=== PATIENT | female | born 1945 | race Caucasian/White ===

== ENCOUNTER 2020-11-25 22:38 | Emergency (ER) | payer MEDICARE, SELFPAY ==
--- NOTE | ~2020-11-25 | XR_ITS ---
[id number] DATE: 11/25/2020 23:13 INDICATION: Fall. Left rib pain. TECHNIQUE: Portable AP chest. 3 views of the left ribs. COMPARISON: None FINDINGS: There is diffuse osteopenia. No left rib fracture is detected. Heart size is normal. Is aortic arch calcification. No pulmonary infiltrate or consolidation, pleural effusion or pulmonary vascular congestion or pneumo thorax. IMPRESSION: No active cardiac pulmonary disease Aortic calcification Diffuse osteopenia No apparent left rib fracture Reviewed, dictated and finalized at [facility]. Reviewed, dictated and finalized at location A.
--- NOTE | ~2020-11-25 | XR_ITS ---
XR wrist LT min 3V DATE: 11/25/2020 23:12 INDICATION: Fall. Left wrist injury TECHNIQUE: 3 views COMPARISON: None FINDINGS: There is a transverse distal radial metaphyseal fracture with approximately one cortical wi dth dorsal displacement. There is mild dorsal inclination of the distal radial articular surface due to mild apex anterior angulation. There is bladder displaced fracture of the ulnar styloid process. Prominent diffuse osteopenia. Chondrocalcinosis at the triangular cartilage. Prominent osteoarthritic change at the first carpometacarpal joint. IMPRESSION: Transverse minimally dorsally displaced distal radial metaphyseal fracture with dorsal in clination of the distal radial articular surface Fracture of ulnar styloid process Diffuse osteopenia Prominent osteoarthritic change at the first carpometacarpal joint Chondrocalcinosis of triangular cartilage Reviewed, dictated and finalized at location A. IMPRESSION: Transverse minimally dorsally displaced distal radial metaphyseal f racture with dorsal inclination of the distal radial articular surface Fracture of ulnar styloid process Diffuse osteopenia Prominent osteoarthritic change at the first carpometacarpal joint Chondrocalcinosis of triangular cartilage
[2020-11-25 22:49] VITALS: BP 148/74; PULSE 80; RESP 16; TEMP 37; O2SAT 99
--- NOTE | 2020-11-25 23:11 | PC.NURSE ---
Report received and care of pt assumed at this time.
[2020-11-25 23:29] VITALS: BP 140/53; PULSE 73; RESP 16; O2SAT 100
[2020-11-26] MEDS: HYDROcodone/acetaminophen (*CRX) 5-325 MG TABLET 1 TAB PO (00:53)
--- NOTE | 2020-11-26 01:13 | ED.GENADULT ---
HPI - General Adult General Chief complaint: Fall Stated complaint: Fall; L Wrist Pain Time Seen by Provider: 11/25/20 23:51 History of Present Illness HPI narrative: Patient 75-year-old female presents the emergency department with chief complaint of left wrist pain and left sided chest wall pain. Patient reports that she was getting a [employer]eder[employer] Pepper out of the refrigerator and was carrying a piece of pizza. The patient states that she tripped fell forward and landed on an outstretched wrist. The patient states that she has pain with range of motion and noticed there is deformity of the distal wrist. The patient reports that she has no numbness or tingling reports she has full range of motion in her hand reports she has tenderness to palpation on her left chest wall and hurts whenever she takes a deep breath or moves around. Related Data Home Medications Medication Instructions Recorded Confirmed lisinopril 11/25/20 Allergies Allergy/AdvReac Type Severity Reaction Status Date / Time No Known Allergies Allergy Verified 11/25/20 22:51 Review of Systems Review of Systems: A 10 system review of systems was completed on the patient and is negative except for what is stated in the HPI. Nursing and ancillary documentation was reviewed. PMFSH Comments Patient is from [facility] family Exam Narrative: GENERAL: Well-appearing, well-nourished, and in no acute distress. HEAD: Normocephalic, atraumatic. EYES: PERRLA and EOMI. ENT: Nares clear, no rhinorrhea or epistaxis. Mucous membranes moist. NECK: Supple. CHEST: Clear to auscultation. No respiratory distress. Tenderness to palpation in the left chest wall. HEART: Regular rate and rhythm. No murmur heard. Normal peripheral pulses. ABDOMEN: Soft, nontender, nondistended, normal active bowel sounds. EXTREMITIES: Normal range of motion. No edema. Deformity present of the left distal radius. SKIN: Warm, dry, no rash. NEURO: No focal deficits. Alert and oriented x3. PSYCH: Normal mood and affect. Course Vital Signs Vital signs: Vital Signs Temperature 37.0 C 11/25/20 22:49 Pulse Rate 80 11/25/20 22:49 Respiratory Rate 16 11/25/20 22:49 Blood Pressure 148/74 H 11/25/20 22:49 Pulse Oximetry 99 11/25/20 22:49 Temperature 37.0 C 11/25/20 22:49 Pulse Rate 73 11/25/20 23:29 Respiratory Rate 16 11/25/20 23:29 Blood Pressure 140/53 L 11/25/20 23:29 Pulse Oximetry 100 11/25/20 23:29 Medical Decision Making Vital Signs Vital Signs: Vital Signs Temperature 37.0 C 11/25/20 22:49 Pulse Rate 80 11/25/20 22:49 Respiratory Rate 16 11/25/20 22:49 Blood Pressure 148/74 H 11/25/20 22:49 Pulse Oximetry 99 11/25/20 22:49 Temperature 37.0 C 11/25/20 22:49 Pulse Rate 73 11/25/20 23:29 Respiratory Rate 16 11/25/20 23:29 Blood Pressure 140/53 L 11/25/20 23:29 Pulse Oximetry 100 11/25/20 23:29 Discharge Plan Discharge Clinical Impression: Closed fracture of distal end of left radius Qualifiers: Encounter type: initial encounter Fracture morphology: unspecified fracture morphology Qualified Code(s): S52.502A - Unspecified fracture of the lower end of left radius, initial encounter for closed fracture Contusion of rib on left side Qualifiers: Encounter type: initial encounter Qualified Code(s): S20.212A - Contusion of left front wall of thorax, initial encounter Patient Disposition: Home, Self-Care Condition: Stable Instructions: Antibiotic Form, Wrist Fracture in Adults (ED), Rib Contusion (ED) Prescriptions: New hydrocodone-acetaminophen 5-325 mg tablet 1 tablet PO Q6H PRN (Reason: pain) Qty: 12 RF: 0 No Action lisinopril 5 mg Tablet RF: 0 Follow-up/Referrals: PHYSICIAN NOT ON STAFF,NONSTAFF [Primary Care Provider] - Carlos Fitzgerald MD [Physician] - 1 Week Time of Disposition: 01:17
--- NOTE | 2020-12-13 10:57 | PC.NURSE ---
LATE ENTRY This note is being entered to document information to the patient's record. The following information was omitted on [11/25/2020], by [Devyn Carvalho]. Short arm splint applied to left wrist by [employer].
== END 2020-11-26 02:28 | disposition home or self-care (01) ==
PROVIDERS: Emergency Provider Emergency Medicine
DX: S59.292A Other physeal fracture of lower end of radius, left arm, initial encounter for closed fracture (principal); S52.612A Displaced fracture of left ulna styloid process, initial encounter for closed fracture; S20.212A Contusion of left front wall of thorax, initial encounter; M11.232 Other chondrocalcinosis, left wrist; W01.0XXA Fall on same level from slipping, tripping and stumbling without subsequent striking against object, initial encounter
CPT/HCPCS: 29125; 71101; 73110; 99284; A9270

== ENCOUNTER 2022-07-03 15:22 | Emergency (ER) | payer MEDICARE, SELFPAY ==
--- NOTE | ~2022-07-03 | CT_ITS ---
EXAMINATION: CT pelvis wo con DATE: 07/03/2022 16:59 INDICATION: Severe right hip pain and difficulty with ambulation TECHNIQUE: High resolution computed tomography (CT) of the pelvis was performed without intravenous c ontrast. Additional sagittal and coronal reconstructions were performed. Automated exposure control a nd iterative reconstruction technique were employed. The dose-length product was 775.08 mGy-cm. COMPARISON: None FINDINGS: Partially visualized lumbar levoscoliosis with severe spondylosis. 3-4 mm anterolisthesis of L4 on L5 . L5 is partially sacralized on the right. Lucent lesion with thickened internal trabecula at the rig ht side of L5 consistent with a hemangioma. There is chronic appearing superior endplate compression fracture at the left side of L3. No acute fracture. Mild osteoarthritis at the left hip. Mild to mode rate osteoarthritis at the right hip and bilateral sacroiliac joints. No osteonecrosis. No hip joint effusion or other abnormal fluid collections. Postoperative change of prior ventral hernia mesh repai r. There is also been prior bowel surgery with suture line along a segment of bowel in the left abdom en. Moderate diverticulosis along the sigmoid colon without adjacent from trace joint to suggest dive rticulitis. Appendix is normal. Bladder is normal. The uterus is not identified and has likely been s urgically resected. Multiple phleboliths in the pelvis. No free fluid in the pelvis. No pathologicall y enlarged pelvic or inguinal lymphadenopathy. IMPRESSION: 1. Mild lumbar levoscoliosis with severe spondylosis. 2. Mild to moderate osteoarthritis at the right hip and bilateral sacral iliac joints and mild osteoa rthritis at the left hip. 2. Sigmoid diverticulosis. Reviewed, dictated and finalized at location A. IMPRESSION: 1. Mild lumbar levoscoliosis with severe spondylosis. 2. Mild to moderate osteoarthritis at the right hip and bilateral sacral iliac joints and mild osteoarthritis at the left hip. 2. Sigmoid diverticulosis.
[2022-07-03 15:24] VITALS: BP 131/79; PULSE 69; RESP 16; TEMP 36.8; O2SAT 98
--- NOTE | 2022-07-03 16:45 | ED.LOWEXIN ---
HPI - Extremity Injury (Lower) General Chief Complaint: Extremity Injury, Lower Stated Complaint: RLE PAIN Time Seen by Provider: 07/03/22 15:34 History of Present Illness HPI Narrative: Patient is a 76-year-old female presenting with right leg pain. Patient states that she had a right knee replacement several months ago. Since that time she has been trying to walk at least a mile every day. States that she went to a cancer walking event on Friday and shortly after developed severe right hip pain. States that it is a shooting pain that goes down her right thigh making it difficult for her to walk. Denies significant trauma or falls. States that she has some tingling on the right side of her right knee. Denies further numbness. States that it hurts so bad she is having difficulty lifting her leg in bed. Denies any back pain. Denies further complaints. Related Data Home Medications Medication Instructions Recorded Confirmed lisinopril 5 mg tablet 11/25/20 Allergies Allergy/AdvReac Type Severity Reaction Status Date / Time No Known Allergies Allergy Verified 11/25/20 22:51 Review of Systems Review of Systems: All systems reviewed & are unremarkable except as noted in HPI and below Exam Narrative: GENERAL: Well-appearing, well-nourished, and in no acute distress. HEAD: Normocephalic, atraumatic. EYES: PERRLA and EOMI. ENT: Nares clear, no rhinorrhea or epistaxis. Mucous membranes moist. NECK: Supple. CHEST: Clear to auscultation. No respiratory distress. HEART: Regular rate and rhythm ABDOMEN: Soft, nontender, nondistended EXTREMITIES: tenderness of R medial upper thigh extending distally to right knee, no skin changes, distal pulses 2+, brisk cap refill, compartments are soft; denies tenderness in other extremities SKIN: Warm, dry, no rash. NEURO: No focal deficits. Alert and oriented x3. PSYCH: Normal mood and affect. Course Vital Signs Vital signs: Vital Signs Temperature 98.2 F 07/03/22 15:24 Pulse Rate 69 07/03/22 15:24 Respiratory Rate 16 07/03/22 15:24 Blood Pressure 131/79 07/03/22 15:24 Pulse Oximetry 98 07/03/22 15:24 Oxygen Delivery Room Air 07/03/22 15:24 Temperature 98.2 F 07/03/22 15:24 Pulse Rate 78 05/17/23 18:47 Respiratory Rate 16 07/03/22 15:24 Blood Pressure 132/79 07/03/22 18:47 Pulse Oximetry 98 07/03/22 18:47 Oxygen Delivery Room Air 07/03/22 15:24 MDM - Extremity Injury (Lower) MDM Narrative Medical decision making narrative: Patient is a 76-year-old female presenting with severe right hip pain. Vitals within normal limits. Exam is remarkable for the above. She has tenderness with palpation of her right proximal thigh that extends into the medial aspect of her thigh. Compartments are soft. Neurovascularly intact. Distal pulses are 2+. CT pelvis reveals osteoarthritis of the right hip and lumbar spine. On reevaluation, the patient states that her pain has improved following Toradol and oxycodone. Discussed the reassuring imaging. Patient states that she has an appointment with her orthopedic doctor in about a week to follow-up on her right knee replacement. Feel she is safe for outpatient management and following up with them. Advised that she continue using Tylenol and ibuprofen. We will provide a prescription for 5 pills of oxycodone for severe breakthrough pain. Strict return precautions given. Patient voiced understanding and is agreeable with plan. Discharged in stable condition Differential Diagnosis Differential diagnosis: Likely fracture of femur, fracture of hip and other (lower back pain, muscle spasm, leg pain) Imaging Data Radiologist's impression: ITS Impressions Pelvis CT 07/03/22 17:07 IMPRESSION: 1. Mild lumbar levoscoliosis with severe spondylosis. 2. Mild to moderate osteoarthritis at the right hip and bilateral sacral iliac joints and mild osteoarthritis at the left hip. 2. Sigmoid divertic
[2022-07-03] MEDS: KETOROLAC 30 MG/ML VIAL (*BKC) IM (17:06)
[2022-07-03] MEDS: oxyCODONE HCL (*CRX) 5 MG TAB IR PO (17:06)
[2022-07-03 18:47] VITALS: BP 132/79; PULSE 78; O2SAT 98
== END 2022-07-03 18:48 | disposition home or self-care (01) ==
PROVIDERS: Emergency Provider Emergency Medicine
DX: M25.551 Pain in right hip (principal); M79.651 Pain in right thigh
CPT/HCPCS: 72192; 96372; 99284; A9270; J1885

== ENCOUNTER 2024-05-29 08:29 | Emergency (ER) | payer MEDICARE, SELFPAY ==
--- NOTE | ~2024-05-29 | US_ITS ---
US venous doppler [facility] - 05/29/2024 10:50 CDT History: 78 years old Female with bilateral lower extremity pain and swelling. Real-time sonographic images of the bilateral lower extremity venous system were obtained. Color Dop pler sonography and spectral waveform analysis were performed. No prior studies for comparison. The bilateral sapheno-femoral junctions are patent. The bilateral common femoral, superficial femor al, popliteal and posterior tibial veins are compressible and without evidence of echogenic thrombus . Impression: No evidence of deep venous thrombosis Reviewed, dictated and finalized at location A. Impression: No evidence of deep venous thrombosis
--- NOTE | ~2024-05-29 | XR_ITS ---
EXAM/ PROCEDURE: XR ankle RT min 3V - 05/29/2024 10:05 CDT HISTORY: 78 years old Female with Ankle pain COMPARISON: None available TECHNIQUE: Four view(s) FINDINGS/ IMPRESSION: There are no fractures or dislocations.Joint spaces are within normal limits Reviewed, dictated and finalized at location A.
--- OUTSIDE RECORDS SUMMARY | 2024-05-29 08:31 | XMS_ITS | Patient Health Record ---
Author Organization [facility] Billing Depart ment Address [address] [place] [address] Care Team Providers Care [employer] Internet Sales Manager Name Role Phone Linh Yen M.D. Primary Care Provider Aman Salazar Unavailable [phone] Allergies No Known Allergies Reason For Referral No Information Medications Medication SIG (Take, Route, Frequency, Duration) Notes Start Date End Date Status Ondansetron 4 MG LET 1 TABLET DISSOLV E ON TONGUE EVERY 8 HOURS NEEDED FOR NAUSEA AND VOMITING FOR UP TO 3 DAYS Oral for 12 Days Active Levocetirizine Dihydrochloride 5 MG Oral for 90 Days Act josh oxyCODONE HCl 5 MG Oral for 1 Days Active Lisinopril 5 MG Oral for 90 Days Active Celecoxib 200 MG TAKE ONE CAPSULE BY MOUTH WITH FOOD ONCE A DAY Oral for 90 Days Active Social History Alcohol Screen (Audit-C) Question Answer Notes Did you have a drink containing alcohol in the p ast year? No Problems Problem Type SNOMED Code ICD Code Onset Dates Problem Status W/U Status Risk Notes Problem 722220955 Bilateral primar y osteoarthritis of knee (M17.0) Active confirmed Problem 064053782681799 Unilateral primary osteoarthritis, right knee (M17.11) Active confirmed Problem 845897140725 Presence of righ t artificial knee joint (Z96.651) Active confirmed Problem 896649341964837 Preoperative examination (Z01.818) Active confirmed Problem Osteoarthritis of knee (537536764) Primary osteoarthritis of right knee (M17.11) Active confirmed Problem 054996182002 Presence of tota l left knee joint prosthesis (Z96.652) Active confirmed Plan Of Treatment Pending Test Test Name Order Date Electrocardiogram (EKG) (16371) 01/24/20 22 Pre-Op : CBC With Differential (41189) 1 03/26/2021 Pre-Op : PT AND PTT (69488) 01/23/2022 Pre-OP : Comprehensive Metabolic Panel ( CMP) (31593) 01/23/2022 Pre-Op : A1C (84551) 01/23/2022 Ct Scan : Knee, Right, W/O Contrast (JESSEE O Protocol) (26755) 01/23/2022 Pre-op: Medical Clearance 01/23/2022 Pre-Op : MRSA (labs) screening 2 Home Health 03/13/2022 Physical Therapy 03/13/2022 Insurance Providers Payer Name Payer Address Payer Phone Subscriber Number Group Number Insured Name Patient Relationship to Insured Coverage Start Date Coverage End Date [facility] [address] [address] [place] [phone] [id number] Chelsey Rice Self - patient is the insured 3 Medical (General) History Medical History History ICD Code Past Medical History: None
--- OUTSIDE RECORDS SUMMARY | 2024-05-29 08:32 | XMS_ITS | Clinical Summary ---
Author Organization [facility] Address [address] [place] [address] Care Team Providers Care Director Of Research Center Name Role Phone Linh Yen MD Primary Care Provider [phone] Allergies No known active allergies Medications Medication Sig Dispensed Refills Start Date End Date Status lisinopril 5 MG tablet Take 1 tablet (5 mg total) by mouth 1 (one) time each day. 11/04/2022 Active meloxicam (Mobic) 15 MG tablet Take 1 tablet (15 mg total) by mouth 1 (one) time each day. 11/06/2022 Active multivitamin () 27-0.8 MG tablet Take 1 tablet by mouth 1 (one) time each day. Active cholecalciferol 25 mcg (1000 units) tablet Take 1 tablet (1,000 Units total) by mouth 1 (one) time each day. Active levocetirizine (Xyzal) 5 MG tablet Take 1 tablet (5 mg total) by mouth 1 (one) time each day in the evening. Active levocetirizine (Xyzal) 5 MG tablet Oral for 90 Days Active fluticasone (Flonase) 50 MCG/ACT nasal spray SPRAY 2 SPRAYS INTO EACH NOSTRIL EVERY DAY 11/04/2022 Active cyclobenzaprine (Flexeril) 10 MG tablet TAKE ONE TABLET BY MOUTH NEEDED THREE TIMES A DAY 11/04/2022 Active celecoxib (CeleBREX) 200 MG capsule TAKE ONE CAPSULE BY MOUTH WITH FOOD ONCE A DAY Oral for 90 Days Active azelastine (Astelin) 0.1 % nasal spray INHALE 2 SPRAYS IN EACH NOSTRIL NASALLY TWICE A DAY 11/04/2022 Active Active Problems No known active problems Family History Medical History Relation Name Comments No Known Problems Father Stroke Mother Relation Name Status Comments Father Other Mother Social History Tobacco Use Types Packs/Day Years Used Date Smoking Tobacco: Former Cigarettes Passive Smoke Exposure: Never Smokeless Tobacco: Never Tobacco Cessation:Counseling Given: Not Answered Alcohol Use Standard Drinks/Week Comments Never 0 (1 standard drink = 0.6 oz pur e alcohol) [facility] Housing Answer Date Recorded Living Situation Not on file 10/03/2022 Housing Problems Not on file 10/03/2022 [facility] Safety Answer Date Recorded Threatened Not on file 10/03/2022 Insulted Not on file 10/03/2022 Physically Hurt Not on file 10/03/2022 Scream Not on file 10/03/2022 Sex and Gender Information Value Date Recorded Sex Assigned at Not on file Gender Identity Not on file Sexual Orientation Not on file Last Filed Vital Signs Vital Sign Reading Time Taken Comments Blood Pressure 138/70 12/16/2022 3:31 PM EDT Pulse 77 12/16/2022 3:31 PM EDT Temperature 36.2 C (97.1 F) 12/10/2022 11:25 AM EDT Respiratory Rate 14 12/10/2022 11:3 0 AM EDT Oxygen Saturation 96% 12/16/2022 3:31 PM EDT Inhaled Oxygen Concentration - - Weight 85.6 kg (188 lb 12.8 oz) 12/16/2022 3:31 PM EDT Height 162.6 cm (5' 4 ) 12/16/2022 3:31 PM EDT Body Mass Index 32.41 12/16/2022 3:31 PM EDT Plan of Treatment Health Maintenance Due Date Last Done Comments Bone Density Scan 1945 Lipid Panel 1945 Medicare Annual Wellness (AWV) 1945 DTaP/Tdap/Td Vaccines (1 - Tdap) 09/07/1966 Zoster Vaccines (1 of 2) 09/07/1997 Pneumococcal Vaccine: 50+ Years (2 of 2 - PPSV23) 01/10/2021 01/11/2020 Respiratory Syncytial Virus (RSV) 60 years and older and/or patients (1 - 1-dose 75+ series) 09/07/2022 COVID-19 Vaccine (5 - season) 2023 01/16/2022, 02/08/2021, 05/24/2020, Additional history exists Influenza Vaccine (Season Ended) 2024 01/16/2022, 01/11/2020 Mammogram Discontinued 01/29/2019, 04/19/2016 HPV Vaccines Aged Out No longer eligi ble based on patient's age to complete this topic Hepatitis A Vaccines Aged Out No long er eligible based on patient's age to complete this topic Hepatitis B Vaccines Aged Out No long er eligible based on patient's age to complete this topic Meningococcal B Vaccine Aged Out No l onger eligible based on patient's age to complete this topic Meningococcal Vaccine Aged Out No ruperto andrew eligible based on patient's age to complete this topic Respiratory Syncytial Virus (RSV) <20 months Aged Out No longer eligible based on patient's age to complete this topic Medical Devices Implanted Type Area Ware[employer] Packaging Supervisor Device Identifier Shelf Expiration Date Model / Serial / Lot Lens Lens Left: Eye Ortho Implants Ortho Implants Bilatera l: Knee Procedures Procedure Name Priority Date/Time Associated Diagnosis Comments BI MAMMOGRAM SCREENING TOMOSYNTHESIS BILATERAL Routine 01/29/2019 8:18 AM EST from Last 3 Months or Most Recently Relevant to Health Maintenance Results * BI Mammogram Screening Tomosynthesis Bilateral (01/29/2019 8:18 AM EST) Anatomical Region Laterality Modality Breast Bilateral Mammography 01/27/2019 3:0 6 PM EST Narrative 01/29/2019 1:34 PM EST Exam: MA MAMMOGRAM SCREEN DIG EDY HANNAH. Date: 01/29/2019 8:10 AM. Indication: SCREENING. Technique: Digital mammography performed. MLO and CC views were obtained bilaterally. CAD was utilized. Breast Tomosynthesis was utilized. Comparison: 04/19/2016, 06/07/2014, 02/19/2013. Findings: Right breast: Moderate residual fibroglandular tissue is present. Benign-appearing calcifications are seen within the right breast including vascular calcification. No change in the well-circumscribed nodular density in the lateral right breast since comparison studies. No suspicious findings. Left breast: Moderate residual fibroglandular tissue is identified. There are benign- appearing calcifications again noted within the left breast including vascular calcification. No significant change. No suspicious findings on today's exam. Impression: No evidence is seen to imply a malignant lesion. Recommendations: Annual mammographic follow-up as recommended by the [employer] (ACR) is suggested, or sooner if clinically indicated. Breast Density: Volpara b . Breast Density is 5.2%. Breasts are composed of scattered fibroglandular densities. BI-RADS Category 2. Benign Finding(s). Thank you for allowing us to participate in the care of your patient. Dictating Elizabeth Benítez Dictated 01/29/2019 Signing Elizabeth Benítez Location [id number] Mammography Final Transcribed by: TONE 01/29/19 13:34 Signed by: ELIZABETH CONWAY MD 01/29/19 13:34 Technologist: KELLI Procedure Note Elizabeth Conway MD - 11/01/2020 Exam: MA MAMMOGRAM SCREEN DIG EDY HANNAH. Date: 01/29/2019 8:10 AM. Indication: SCREENING. Technique: Digital mammography performed. MLO and CC views were obtainedbilaterally. CAD was utilized. Breast Tomosynthesis was utilized. Comparison: 04/19/2016, 06/07/2014, 02/19/2013. Findings: Right breast: Moderate residual fibroglandular tissue is present.Benign- appearing calcifications are seen within the right breast includingvascular calcification. No change in the well-circumscribed nodulardensity in the lateral right breast since comparison studies. Nosuspicious findings. Left breast: Moderate residual fibroglandular tissue is identified. Thereare benign-appearing calcifications again noted within the left breastincluding vascular calcification. No significant change. No suspiciousfindings on today's exam. Impression: No evidence is seen to imply a malignant lesion. Recommendations: Annual mammographic follow-up as recommended by the [employer] (ACR) is suggested, or sooner if clinically indicated. Breast Density: Volpara b . Breast Density is 5.2%. Breasts are composedof scattered fibroglandular densities. BI-RADS Category 2. Benign Finding(s). Thank you for allowing us to participate in the care of your patient. Dictating Elizabeth Benítez Dictated 01/29/2019 Signing Elizabeth Benítez Location [id number] Mammography Final Transcribed by: TONE 01/29/1913:34 Signed by: ELIZABETH CONWAY MD 01/29/1913:34 Technologist: KELLI Abhilash Velasco MD IMG BI PROCEDURES from Last 3 Months or Most Recently Relevant to Health Maintenance Advance Directives * Full Code (Latest Code Status on File) Date Activated Date Inactivated Comments 12/10/2022 10:57 AM 12/10/2022 2:21 PM * Full Code Date Activated Date Inactivated Comments 12/10/2022 9:39 AM 12/10/2022 10:57 AM Care Teams Director Of Research Center Relationship Specialty Start Date End Date Linh Yen MD PCP - General 04/17/11
[2024-05-29 08:34] VITALS: BP 146/94; PULSE 82; RESP 18; TEMP 36.6; O2SAT 100
--- OUTSIDE RECORDS SUMMARY | 2024-05-29 09:13 | XMS_ITS | Clinical Summary ---
Author Organization [facility] Address [address] [place] [id number] Care Team Providers Care Sports Physical Therapist Name Role Phone Linh Yen MD Primary Care Provider [phone] Allergies No known active allergies Medications Medication [...] drink = 0.6 oz pur e alcohol) [facility] Housing Answer Date Recorded Living Situation Not on file 10/03/2022 Housing Problems Not on file 10/03/2022 [facility] Safety Answer Date Recorded Threatened Not on [...] this topic Medical Devices Implanted Type Area Schedule Manager Device Identifier Shelf Expiration Date Model / [...] Annual mammographic follow-up as recommended by the [employer] ([employer]) is suggested, or sooner if clinically indicated. Breast Density: Volpara b . Breast Density is 5.2%. Breasts are composed of scattered fibroglandular densities. BI-RADS Category 2. Benign Finding(s). Thank you for allowing us to participate in the care of your patient. Dictating Elizabeth Benítez Dictated 01/29/2019 Signing Elizabeth Benítez Location [id number] Mammography Final Transcribed by: TONE 01/29/19 13:34 [...] Annual mammographic follow-up as recommended by the [employer] ([employer]) is suggested, or sooner if clinically indicated. Breast Density: Volpara b . Breast Density is 5.2%. Breasts are composedof scattered fibroglandular densities. BI-RADS Category 2. Benign Finding(s). Thank you for allowing us to participate in the care of your patient. Dictating Elizabeth Benítez Dictated 01/29/2019 Signing Elizabeth Benítez Location [id number] Mammography Final Transcribed by: TONE 01/29/1913:34 Signed [...] 9:39 AM 12/10/2022 10:57 AM Care Teams Sports Physical Therapist Relationship Specialty Start Date End Date Linh Yen MD PCP - General 04/17/11
[2024-05-29 09:33] VITALS: BP 132/76; PULSE 80; RESP 18; TEMP 36.6; O2SAT 99
--- NOTE | 2024-05-29 10:06 | ED_ITS ---
HPI - General Adult General Chief complaint: Extremity Injury, Lower Stated complaint: R FOOT AND L CALF PAIN S/P SALOME TRIP Time Seen by Provider: 05/29/24 08:59 History of Present Illness HPI narrative: This is a 78-year-old female presenting ED with chief complaint of foot and calf pain. Patient was recently on vacation in [place]. She spent 4 days walking up and down the streets of [place]. After that she developed pain in her calves and her right ankle. She then flew back to [facility] is here for evaluation. She had been taking Motrin Tylenol for pain but has not taken anything today. No history of DVT PE. No trauma. Related Data Home Medications ?Medication ?Instructions ?Recorded ?Confirmed ?Last Taken ?Type lisinopril 5 mg tablet 11/25/20 Unknown History Allergies Allergy/AdvReac Type Severity Reaction Status Date / Time No Known Allergies Allergy Verified 05/29/24 08:30 Exam Narrative: APPEARANCE: No apparent distress. Head: atraumatic. EYES: EOMI, NOSE: Atraumatic NECK: Trachea midline RESPIRATORY: No increased rate of breathing CARDIOVASCULAR: RRR, ABDOMINAL: Non-distended MUSCULOSKELETAl: Focal exam of the bilateral lower extremities revealed no swelling, erythema redness or tenderness. Calves are equal in diameter bilaterally. Pulses are intact. Compartments are soft. NEURO: Alert. Moving 4/4 extremities SKIN:: Warm, dry. Normal color PSYCHIATRIC: Normal affect Course Vital Signs Vital signs: Vital Signs Temperature 97.9 F 05/29/24 08:34 Pulse Rate 82 05/29/24 08:34 Respiratory Rate 18 05/29/24 08:34 Blood Pressure 146/94 H 05/29/24 08:34 Pulse Oximetry 100 05/29/24 08:34 Oxygen Delivery Room Air 05/29/24 08:34 Temperature 97.8 F 05/29/24 11:41 Pulse Rate 78 05/29/24 11:41 Respiratory Rate 16 05/29/24 11:41 Blood Pressure 120/76 05/29/24 11:41 Pulse Oximetry 98 05/29/24 11:41 Oxygen Delivery Room Air 05/29/24 08:34 Medical Decision Making [facility] Narrative Medical decision making narrative: -Course: 78-year-old female presenting for calf and ankle pain after a trip to [place]. X-ray negative for fracture dislocation. Venous ultrasound negative. Presentation most consistent with muscle strain. Discharged on NSAIDs and musc le relaxers. Given return precautions. -DDX includes but is not limited to: Muscle strain, arthritis, DVT -Co-morbidities complicating care: Obesity Vital Signs Vital Signs: Vital Signs Temperature 97.9 F 05/29/24 08:34 Pulse Rate 82 05/29/24 08:34 Respiratory Rate 18 05/29/24 08:34 Blood Pressure 146/94 H 05/29/24 08:34 Pulse Oximetry 100 05/29/24 08:34 Oxygen Delivery Room Air 05/29/24 08:34 Temperature 97.8 F 05/29/24 11:41 Pulse Rate 78 05/29/24 11:41 Respiratory Rate 16 05/29/24 11:41 Blood Pressure 120/76 05/29/24 11:41 Pulse Oximetry 98 05/29/24 11:41 Oxygen Delivery Room Air 05/29/24 08:34 Discharge Plan Discharge Clinical Impression: Muscle strain Patient Disposition: Home Condition: Stable Instructions: Antibiotic Form, Muscle Strain (DC) Additional Instructions: You were seen in the emergency department for calf and ankle pain. You do not have a blood clot in your legs or any fractures. Please use Motrin Tylenol as needed. Please follow-up with your primary care physician in 1 week. Patient Language: Korean Prescriptions: New ibuprofen 800 mg tablet 800 mg PO TID PRN (Reason: pain) 7 Days Qty: 21 0RF acetaminophen 500 mg tablet 1,000 mg PO TID PRN (Reason: cullen) 7 Days Qty: 42 0RF methocarbamol 750 mg tablet 1,500 mg PO TID Qty: 42 0RF No Action lisinopril 5 mg Tablet hydrocodone-acetaminophen 5-325 mg tablet 1 tablet PO Q6H PRN (Reason: pain) Qty: 12 0RF hydrocodone-acetaminophen 5-325 mg tablet 1 tablet PO Q6H PRN (Reason: pain) 3 Days Qty: 12 0RF hydrocodone-acetaminophen 5-325 mg tablet 1 tablet PO Q6H PRN (Reason: pain) 3 Days Qty: 12 0RF oxycodone 5 mg tablet 5 mg PO Q8H PRN (Reason: pain) Qty: 5 0RF Follow-up/Referrals: PHYSICIAN NOT ON STAFF,NONSTAFF [Primary Care Provider] -
[2024-05-29] MEDS: KETOROLAC 15 MG/ML VIAL (*BKC) IV PUSH (10:14)
[2024-05-29] MEDS: HYDROcodone/acetaminophen (*CRX) 5-325 MG TABLET 2 TAB PO (10:14)
[2024-05-29 11:41] VITALS: BP 120/76; PULSE 78; RESP 16; TEMP 36.6; O2SAT 98
== END 2024-05-29 12:29 | disposition home or self-care (01) ==
PROVIDERS: Emergency Provider Emergency Medicine
DX: S86.912A Strain of unspecified muscle(s) and tendon(s) at lower leg level, left leg, initial encounter (principal); S96.912A Strain of unspecified muscle and tendon at ankle and foot level, left foot, initial encounter; E66.9 Obesity, unspecified; Z68.33 Body mass index [BMI] 33.0-33.9, adult; X50.9XXA Other and unspecified overexertion or strenuous movements or postures, initial encounter; Y93.01 Activity, walking, marching and hiking
CPT/HCPCS: 73610; 93970; 96374; 99284; A9270; J1885